=== PATIENT | male | born 1960 | race Caucasian/White ===

== ENCOUNTER 2017-08-25 18:41 | Emergency (ER) | payer OTHER, SELFPAY ==
--- NOTE | 2017-08-25 20:33 | RAD ---
RIGHT ELBOW: 08/25/17 Four views. HISTORY: Fall with injury to right elbow with elbow pain. Mild degenerative spurring at the elbow. There is a joint effusion present. There is suggestion of linton btle radial neck fracture on one of the oblique images. IMPRESSION: Evidence of a fracture involving the radial neck. There is associated joint effusion. POS: [facility]
[2017-08-25] MEDS ORDERED: HYDROcodone/Acetaminophen 5/325 mg Tablet ONE (20:35)
== END 2017-08-25 21:10 | disposition home or self-care (01) ==
LOC: ERS 18:41
DX: S52.131A Displaced fracture of neck of right radius, initial encounter for closed fracture (principal); M25.421 Effusion, right elbow; I10 Essential (primary) hypertension; F17.210 Nicotine dependence, cigarettes, uncomplicated; W11.XXXA Fall on and from ladder, initial encounter
CPT/HCPCS: 29105; 99406

== ENCOUNTER 2021-04-22 21:03 | Emergency (ER) | payer SELFPAY ==
[2021-04-22] MEDS ORDERED: Ketorolac Tromethamine 30 MG/ML VIAL ONE (23:05)
== END 2021-04-22 23:00 | disposition home or self-care (01) ==
LOC: ERS 21:03
DX: K02.9 Dental caries, unspecified (principal); K08.89 Other specified disorders of teeth and supporting structures; I10 Essential (primary) hypertension; F17.210 Nicotine dependence, cigarettes, uncomplicated
CPT/HCPCS: 96372; 99283; J1885